=== PATIENT | female | born 1990 ===

== ENCOUNTER 2017-02-13 13:53 | Emergency (ER) | payer MEDICAID ==
[~2017-02-13] VITALS: Ht 157.5 cm; Wt 77.1 kg
[2017-02-13] MEDS ORDERED: [UNRECOGNIZED DRUG - REMARK] (14:02)
[2017-02-13] MEDS ORDERED: [UNRECOGNIZED DRUG - REMARK] (14:02)
[2017-02-13 14:21] LABS: BASOPHILS % (AUTO) 0.4 % (0.0-2.0); EOSINOPHILS # (AUTO) 0.2 K/uL (0.0-0.7); EOSINOPHILS % (AUTO) 2.3 % (0.0-7.0); HEMATOCRIT 36.5 % (37-47); LYMPHOCYTES # (AUTO) 2.5 K/UL (0.8-4.8); LYMPHOCYTES % (AUTO) 24.2 % (20.5-51.5); MEAN CORPUSCULAR HEMOGLOBIN 29.3 UUG (27.0-31.0); MEAN CORPUSCULAR HGB CONC 33 g/dL (32.0-37.0); MONOCYTES # (AUTO) 0.6 K/UL (0.1-1.30); MONOCYTES % (AUTO) 6.1 % (0.0-11.0); NEUTROPHILS # (AUTO) 6.9 K/UL (1.8-8.9); PLATELET COUNT (AUTO) 335 K/UL (150-450); WHITE BLOOD COUNT (AUTO) 10.2 K/UL (4.0-11.2)
[2017-02-13 14:36] LABS: ALANINE AMINOTRANSFERASE 36 U/L (14-59); ALKALINE PHOSPHATASE 107 U/L (50-136); ASPARTATE AMINOTRANSFERASE 15 U/L (15-37); BILIRUBIN,DIRECT < 0.1 mg/dL (0.0-0.2); BILIRUBIN,TOTAL 0.2 mg/dL (0.2-1.0); CARBON DIOXIDE 25 mmol/L (21-32); CHLORIDE 105 mmol/L (98-107); CREATININE 0.6 mg/dL (0.6-1.3); GLUCOSE 111 mg/dL (74-106); LIPASE 74 U/L (73-393); POTASSIUM 3.6 mmol/L (3.5-5.1); TOTAL PROTEIN, SERUM 6.5 g/dL (6.4-8.2); UREA NITROGEN, BLOOD 11 mg/dL (7-18)
--- NOTE | 2017-02-13 14:53 | NUR ---
PATIENT WAS SEEN BY MD FOR C/O PAIN IN LEFT LOWER QUADRANT. STATES SHE GAVE TO A GIRL 8 DAYS AGO. DENIES NAUSEA, VOMITING OR DIARRHEA. IV PLACED, MEDS GIVEN ORDERED. PLACED ON A MONITOR. BOYFRIEND AT BEDSIDE. LABS PENDING. URINE SENT TO LAB.
--- NOTE | 2017-02-13 14:54 | NUR ---
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
[2017-02-13 15:18] LABS: *URINE HCG, QUAL NEGATIVE (NEGATIVE)
[2017-02-13 15:19] LABS: *BILIRUBIN,URIN NEGATIVE (NEGATIVE); *BLOOD, URINE 3+ (NEGATIVE); *CLARITY,URINE SLIGHTLY CLOUDY (CLEAR); *COLOR,URINE YELLOW (YELLOW); *KETONES,URINE NEGATIVE (NEGATIVE); *PROTEIN,URINE NEGATIVE (NEGATIVE); *UROBILINOGEN,URINE 0.2 E.U./dl (NORMAL); LEUKOCYTE ESTERASE ,URINE 2+ (NEGATIVE); NITRITE, URINE NEGATIVE (NEGATIVE); UGLUCOSE NEGATIVE (NEGATIVE)
[2017-02-13 15:25] LABS: BACTERIA,URINE RARE /HPF (NONE SEEN); SQUAMOUS EPITHELIAL CELL,UR FEW /HPF (NONE SEEN)
--- NOTE | 2017-02-13 16:17 | NUR ---
PATIENT STATES SHE FEELS CHEST DISCOMFORT. DR BARLOW NOTIFIED. VITAL SIGNS UNCHANGED. STATES ABDOMINAL PAIN HAS DIMINISHED. SECOND BAG OF NS IS RUNNING.
--- NOTE | 2017-02-13 16:45 | NUR ---
DR BARLOW AT BEDSIDE SPEAKING TO PATIENT AND BOYFRIEND.
--- NOTE | 2017-02-13 17:19 | NUR ---
PATIENT IS AWAKE AND ALERT WITH NO NEW COMPAINTS. DR BARLOW WAS IN THE ROOM AGAIN SPEAKING TO PT AND BOYFRIENRamiro SANCHEZ.
--- NOTE | 2017-02-13 17:43 | NUR ---
IV DC'D, CATHETR TIP INTACT, PRESSURE APPLIED, DRESSING APPLIED. PATIENT STATES SHE "FEELS BETTER". DC AND FOLLOW UP INSTRUCTIONS GIVEN AND EXPLAINED TO PATIENT AND FAMILY WHO STATE THEY UNDERSTAND ALL INSTRUCTIONS.
--- NOTE | 2017-02-13 17:45 | NUR ---
ALL COPIES OF TEST RESULTS GIVEN TO PATIENT.
[2017-02-13 17:46] VITALS: BP 128/61
== END 2017-02-13 17:50 | disposition home or self-care (01) ==
LOC: ER 13:56
DX: E86.0 Dehydration (principal)
CPT/HCPCS: 36415; 76856; 83690; 84703; 85025; 93005; A4663; J1170; J2405; J7030

== ENCOUNTER 2017-12-03 15:04 | Emergency (ER) | payer MEDICAID ==
[~2017-12-03] VITALS: Ht 160 cm; Wt 72.6 kg
[~2017-12-03 15:04] MED LIST: [UNRECOGNIZED DRUG - REMARK]; [UNRECOGNIZED DRUG - REMARK]
[2017-12-03] MEDS ORDERED: IV NORMAL SALINE 1000 ML BAG IV ONE (16:00)
[2017-12-03 16:17] LABS: BASOPHILS # (AUTO) 0.1 K/uL (0.0-8.0); BASOPHILS % (AUTO) 0.6 % (0.0-2.0); EOSINOPHILS # (AUTO) 0.2 K/uL (0.0-0.7); EOSINOPHILS % (AUTO) 1.1 % (0.0-7.0); HEMOGLOBIN 13.3 g/dL (10.9-14.3); LYMPHOCYTES # (AUTO) 2.4 K/uL (20.0-40.0); LYMPHOCYTES % (AUTO) 12.8 % (20.5-51.5); MEAN CORPUSCULAR HGB CONC 33 g/dL (32.3-35.6); MEAN CORPUSCULAR VOLUME 87.7 fL (75.5-95.3); MONOCYTES # (AUTO) 1.1 K/uL (2.0-10.0); NEUTROPHILS # (AUTO) 14.7 K/uL (1.8-8.9); NEUTROPHILS % (AUTO) 79.5 % (38.5-71.5); PLATELET COUNT (AUTO) 330 K/uL (179-408); RED BLOOD CELL COUNT(AUTO) 4.57 MIL/uL (3.63-4.92); WHITE BLOOD COUNT (AUTO) 18.5 K/uL (3.8-11.8)
[2017-12-03 16:27] LABS: CREATININE 0.7 mg/dL (0.6-1.3); POTASSIUM 3.7 mmol/L (3.5-5.1)
[2017-12-03 16:32] LABS: BILIRUBIN,DIRECT 0.1 mg/dL (0.0-0.2); BILIRUBIN,TOTAL 0.4 mg/dL (0.2-1.0); TOTAL PROTEIN, SERUM 7.1 g/dL (6.4-8.2)
--- NOTE | 2017-12-03 17:31 | NUR ---
Patient discharged to home in stable conditon. Written and verbal after care instructions given. Patient verbalizes understanding of instructions.pt walks in steady gait. pt says feels better, pt accompanied by family membwer.
[2017-12-03 17:32] VITALS: BP 119/71
== END 2017-12-03 17:33 | disposition home or self-care (01) ==
LOC: ER 15:06
DX: R10.13 Epigastric pain (principal); Z88.2 Allergy status to sulfonamides; Z88.8 Allergy status to other drugs, medicaments and biological substances; Z79.2 Long term (current) use of antibiotics; Z79.899 Other long term (current) drug therapy
CPT/HCPCS: 36415; 70030-TC; 83690; 84703; 85025; 85730; 86850; 86900; 86901; 93005; A4663; J7030